=== PATIENT | male | born 1990 | race Caucasian/White ===

== ENCOUNTER 2020-08-22 15:51 | Emergency (ER) | payer BC ==
[2020-08-22 15:56] VITALS: BP 145/81; PULSE 118; RESP 24; TEMP 98
--- NOTE | 2020-08-22 17:53 | XR ---
EXAMINATION TYPE: XR hand complete RT DATE OF EXAM: 08/22/2020 COMPARISON: NONE HISTORY: Second digit injury. Pain TECHNIQUE: 3 views FINDINGS: I see no fracture nor dislocation. Index finger appears intact. Joint spaces are normal. IMPRESSION: Negative right hand exam.
--- NOTE | 2020-08-22 18:04 | ED ---
Wound/Laceration HPI - General Chief Complaint: Wound/Laceration Stated Complaint: R Hand Injury Time Seen by Provider: 08/22/20 17:30 Source: patient Mode of arrival: ambulatory Limitations: no limitations - History of Present Illness Initial Comments: 30-year-old male presents to the emergency department with a chief complaint of finger injury that occurred about one hour prior to arrival. Patient reports she was applying compound on a serpentine belt when his finger got stuck in the belt and went through the fatmata on the other side. Patient reports his fingernail has completely removed and he had significant pain initially which has since resolved. He is not aware of his tetanus status. Denies any numbness or tingling. - Related Data Home Medications Medication Instructions Recorded Confirmed Cetirizine HCl [Zyrtec] 10 mg PO DAILY 08/22/20 08/22/20 Cyanocobalamin (Vitamin B-12) 1,000 mcg PO DAILY 08/22/20 08/22/20 [Vitamin B-12] amLODIPine BESYLATE 10 mg PO DAILY 08/22/20 08/22/20 Allergies Allergy/AdvReac Type Severity Reaction Status Date / Time No Known Allergies Allergy Verified 08/22/20 15:55 Review of Systems ROS Statement: Those systems with pertinent positive or pertinent negative responses have been documented in the HPI. ROS Other: All systems not noted in ROS Statement are negative. Past Medical History Past Medical History: Hypertension Past Surgical History: No Surgical Hx Reported Past Psychological History: No Psychological Hx Reported Smoking Status: Vaper Past Alcohol Use History: None Reported Past Drug Use History: None Reported, Marijuana General Exam Limitations: no limitations General appearance: alert, in no apparent distress Head exam: Present: atraumatic, normocephalic, normal inspection Eye exam: Present: normal appearance, PERRL, EOMI Pupils: Present: normal accommodation ENT exam: Present: normal exam, normal oropharynx, mucous membranes moist, TM's normal bilaterally, normal external ear exam Neck exam: Present: normal inspection, full ROM. Absent: tenderness Respiratory exam: Present: normal lung sounds bilaterally. Absent: respiratory distress Cardiovascular Exam: Present: regular rate, normal rhythm, normal heart sounds. Absent: systolic murmur Extremities exam: Present: full ROM, tenderness (Tenderness to touch), normal capillary refill, other (Palpable ulnar and radial pulses lateral). Absent: normal inspection (Nail avulsion of the right second digit. Does not appear to be nail bed laceration), pedal edema, joint swelling, calf tenderness Back exam: Present: normal inspection, full ROM. Absent: tenderness, CVA tenderness (R), CVA tenderness (L) Neurological exam: Present: alert, oriented X3 Psychiatric exam: Present: normal affect, normal mood Skin exam: Present: warm, dry, intact, normal color Course Vital Signs 08/22/20 15:52 Temperature 98 F Pulse Rate 118 H Respiratory 24 Rate Blood Pressure 145/81 O2 Sat by Pulse 96 Oximetry Procedures - Nerve Block Consent Obtained: verbal consent Local Anesthetic Used: Lidocaine 1% Amount of anesthesia used: 5 Side: right Procedure Successful: Yes Complications: none Patient Tolerated Procedure: well, no complications Medical Decision Making - Medical Decision Making 30-year-old male presents to emergency department with a chief complaint of finger injury. On physical examination, complete nail avulsion with no laceration to the nailbed. X-ray showed no fractures to the bone. The bone was not visible on exam. The region was thoroughly irrigated with water and Betadine after performing a digital block. Patient tells the procedure well. I applied Vaseline gauze and dressing to the finger. Advised him proper wound care and advised him to follow with the primary care physician for recheck. Return parameters were discussed with patient is an attending agreeable. Case discussed with Disposition Clinical Impression: Nail avulsion, finger Disposition: HOME SELF-CARE Condition: Stable Instructions (If sedation given, give patient instructions): Nail Removal (ED) Additional Instructions: Please return to the Emergency Department if symptoms worsen or any other concerns. Is patient prescribed a controlled substance at d/c from ED?: No Referrals: Gretel Mendez DO [Primary Care Provider] - 1-2 days Time of Disposition: 18:46
[2020-08-22] MEDS ORDERED: LIDOCAINE 1% INJ 10MG/ML (20 ML MDV) SQ ONE (18:07)
[2020-08-22] MEDS ORDERED: DIPH,PERTUS(ACELL)TETVAC-LF 0.5 ML VIAL IM ONE (18:47)
== END 2020-08-22 18:50 | disposition home or self-care (01) ==
LOC: EC 15:51
DX: S61.309A Unspecified open wound of unspecified finger with damage to nail, initial encounter (principal); I10 Essential (primary) hypertension; W22.8XXA Striking against or struck by other objects, initial encounter
CPT/HCPCS: 73130; 99283; 64450; 96372; 90471; J2001

== ENCOUNTER → 2022-10-24 | Outpatient (CLI) | payer BC ==
--- NOTE | 2022-10-24 17:04 | CA ---
Exercise Stress Test Report Name: Riley Solis Exam Date: 10/24/2022 11:03 Exam Location: [place] Stress Ht (in): 70 Wt (lb): 205 BSA: 2.11 Ordering Phys: Gretel Mendez DO Referring Phys: CARLIN,, Technologist: Angelo Lanza Age: 32 Gender: M : 1990 Procedure CPT: Indications: R07.89 chest pain ICD-10 Codes: Patient History: Hypertension Medications: AMLODIPINE,,,,,, ZYRTEC,,,,,, SINGULAIR,,,,,, MULTIVITAMIN,,,,, Meds past 24 hrs: Pretest Chest Pain: STRESS TEST Otto Protocol Exercise Duration (min:sec): 13:[address] Depressions (mm): Angina Score: Campbell Score: Resting HR (bpm): 59 Peak HR (bpm): 178 Resting BP (mmHg): 114 / 74 Peak BP (mmHg): 174 / 64 MPHR: 187 Target HR: 159 % MPHR: 95 METS: 13.9 Total Dose: Peak Dose: Atropine: Double Product: 21969 BP Response: Stress Termination: TARGET HR REACHED/MAX EXERTION Stress Symptoms: NO SYMPTOMS Stress Summary: ECG ANALYSIS Resting ECG: Baseline EKG shows normal sinus rhythm normal axis normal intervals Stress ECG: Patient exercised on Otto protocol for 13 minutes achieving 14 METs 85% of predicted maximal heart rate without chest pain or diagnostic ST segment depression CONCLUSIONS Excellent exercise tolerance Negative stress test by EKG criteria Dr. Gregorio Caruso MD (Electronically Signed) Final Date: 24 October 2022 17:03
== END | disposition home or self-care (01) ==
LOC: RADNMMAIN 10:46
PROVIDERS: ATTEND Family Medicine
DX: I10 Essential (primary) hypertension (principal); R07.89 Other chest pain
CPT/HCPCS: 93017